=== PATIENT | female | born 1980 | race Caucasian/White ===

== ENCOUNTER 2016-12-31 02:37 | Inpatient (IN) | payer OTHER ==
--- NOTE | 2016-12-30 20:03 | History & Physical Pre-Op ---
General Information and HPI History of Present Illness: 36yo with chronic severe menorrhagia desires definitive surgicaltreatment. Menses every 3-4 weeks and lasitng 7 days. Previous c/s x 3 and BTL. Allergies/Medications Allergies: Coded Allergies: NO KNOWN ALLERGIES (12/24/16) Home Med list Hydrochlorothiazide 25 MG TABLET 1 TAB PO DAILY WATER PILL (Reported) Lisinopril (Prinivil) 5 MG TABLET 1 TAB PO DAILY HEART (Reported) Metformin HCl 500 MG TABLET 1 TAB PO BID DIABETES (Reported) Metoprolol Succinate 100 MG TAB.ER.24H 1 TAB PO DAILY HEART (Reported) Pantoprazole Sodium (Protonix) 40 MG TABLET.DR 1 TAB PO DAILY GI (Reported) Past History Medical History Cardiovascular: hypertension Gastrointestinal: GERD Endocrine: diabetes Surgical History Pertinent Surgical History: , tubal ligation Review of Systems Review of Systems Constitutional: Reports: no symptoms. EENTM: Reports: no symptoms. Cardiovascular: Reports: no symptoms. Respiratory: Reports: no symptoms. GI: Reports: no symptoms. Genitourinary: Reports: see HPI. Musculoskeletal: Reports: no symptoms. Skin: Reports: no symptoms. Neurological/Psychological: Reports: no symptoms. Hematologic/Endocrine: Reports: no symptoms. Immunologic/Allergic: Reports: no symptoms. All Other Systems: Reviewed and Negative Exam & Diagnostic Data Last 24 Hrs of Vital Signs/I&O vss Physical Exam: HEENT: NCAT Chest: CTA CV: nl S1S2 Pelvic: deferred Ext: no C/C/E Neuro: nonfocal Assessment/Plan Assessment/Plan: menorrhagia GABRIELLE;BS stents As Ranked By This Provider Problem List: 1. Menorrhagia
[~2016-12-31] VITALS: Ht 167.6 cm; Wt 90.9 kg
[~2016-12-31 02:37] MED LIST: HYDROCHLOROTHIA25 M1 PO; METFORMIN HCL500 M3 PO; METOPROLOL SUC100 M2 PO; PRINIVIL5 M1 PO; PROTONIX40 M3 PO
--- NOTE | 2016-12-31 08:22 | Operative Report ---
Operative/Inv Procedure Report Surgery Date: 12/31/16 Name of Procedure: Cystoscopy and insertion of bilateral ureteral stents Pre-Operative Diagnosis: Patient undergoing hysterectomy Post-Operative Diagnosis: Same Estimated Blood Loss: scant Surgeon/Journeyman Pressman: Nito JOINER, Malik MARTIN MD,LESLY Anesthesia: general endotracheal tube Specimens: Urine for culture Complications: None Condition: Stable Operative Indication: Need for hysterectomy Operative/Procedure Note Note: The patient was taken to the operating room and identified. She was placed in supine position on the operating table. Timeout was executed appropriately the patient awake. Gen. anesthesia was induced via an endotracheal tube. She was placed in the dorsal lithotomy position and prepped and draped in usual fashion for cystoscopy. A 22 Somali cystoscope sheath was placed in the bladder and cystoscopy performed. Other than some mild trigonitis the bladder was normal. The right and left ureteral orifices were normal in location and appearance. Open-ended catheter was placed through the cystoscope and into the left ureter appears advanced up the level of the left kidney. Through the second port on the cystoscope bridge another open-ended catheter was advanced through the scope and into the right ureter and advanced up the level of the kidney. The cystoscope was removed leaving both ureteral catheters in place. A Castro catheter was then placed. The ureteral stents were fixed the Castro catheter with cloth tape. Each stent was placed through separate drainage bag. The patient tolerated this portion of the procedure well and was to undergo hysterectomy was dictated separately. Findings: Normal bladder other than mild trigonitis
[2016-12-31 19:04] LABS: ABSOLUTE BASOPHIL COUNT 0 /CUMM (0.0-0.2); ABSOLUTE EOSINOPHIL COUNT 0 /CUMM (0.0-0.7); ABSOLUTE GRANULOCYTE CT 8.2 /CUMM (1.4-6.5); ABSOLUTE LYMPH COUNT 1.2 /CUMM (1.2-3.4); ABSOLUTE MONOCYTE COUNT 0.5 /CUMM (0.10-0.60); BASOPHIL % 0.1 % (0.0-2.0); EOSINOPHIL % 0 % (0-5); HEMATOCRIT 21.5 % (37-47); MEAN CORPUSCULAR HGB 21.3 PG (27.0-31.0); MEAN CORPUSCULAR HGB CONC 31.4 G/DL (33.0-37.0); MEAN CORPUSCULAR VOLUME 67.9 FL (81.0-99.0); MEAN PLATELET VOLUME 9.1 FL (7.4-10.4); PLATELET COUNT 266 /CUMM (130-400); RBC DISTRIBUTION WIDTH 18.2 % (11.5-14.5); RED BLOOD CELL CT 3.17 /CUMM (4.20-5.40); WHITE BLOOD CELL COUNT 9.9 /CUMM (4.8-10.8)
[2016-12-31 19:07] LABS: GRANULOCYTE % 82.8 % (42.2-75.2)
[2016-12-31 23:50] LABS: ABSOLUTE BASOPHIL COUNT 0 /CUMM (0.0-0.2); ABSOLUTE EOSINOPHIL COUNT 0 /CUMM (0.0-0.7); ABSOLUTE GRANULOCYTE CT 6.4 /CUMM (1.4-6.5); ABSOLUTE LYMPH COUNT 1.7 /CUMM (1.2-3.4); ABSOLUTE MONOCYTE COUNT 0.5 /CUMM (0.10-0.60); BASOPHIL % 0.5 % (0.0-2.0); EOSINOPHIL % 0.3 % (0-5); GRANULOCYTE % 73.5 % (42.2-75.2); HEMATOCRIT 20.6 % (37-47); MEAN CORPUSCULAR HGB 21.1 PG (27.0-31.0); MEAN CORPUSCULAR HGB CONC 31.2 G/DL (33.0-37.0); MEAN CORPUSCULAR VOLUME 67.5 FL (81.0-99.0); MEAN PLATELET VOLUME 8.1 FL (7.4-10.4); PLATELET COUNT 263 /CUMM (130-400); RBC DISTRIBUTION WIDTH 17.9 % (11.5-14.5); RED BLOOD CELL CT 3.05 /CUMM (4.20-5.40); WHITE BLOOD CELL COUNT 8.6 /CUMM (4.8-10.8)
[2017-01-01 09:06] LABS: ABSOLUTE BASOPHIL COUNT 0.1 /CUMM (0.0-0.2); ABSOLUTE EOSINOPHIL COUNT 0.1 /CUMM (0.0-0.7); ABSOLUTE GRANULOCYTE CT 3.9 /CUMM (1.4-6.5); ABSOLUTE MONOCYTE COUNT 0.5 /CUMM (0.10-0.60); EOSINOPHIL % 1.5 % (0-5); MEAN CORPUSCULAR HGB 22.3 PG (27.0-31.0); MEAN CORPUSCULAR HGB CONC 31.6 G/DL (33.0-37.0); MEAN CORPUSCULAR VOLUME 70.4 FL (81.0-99.0); MEAN PLATELET VOLUME 8.7 FL (7.4-10.4); PLATELET COUNT 233 /CUMM (130-400); RBC DISTRIBUTION WIDTH 19.6 % (11.5-14.5); RED BLOOD CELL CT 3.15 /CUMM (4.20-5.40); WHITE BLOOD CELL COUNT 6.6 /CUMM (4.8-10.8)
[2017-01-01 09:12] LABS: HEMATOCRIT 22.2 % (37-47)
--- NOTE | 2017-01-01 12:15 | RADIOLOGY REPORT ---
EXAMINATION: XR PORTABLE CHEST CLINICAL INFORMATION: Postoperative fever. COMPARISON: None TECHNIQUE: Portable portable AP semierect view of the chest was obtained. FINDINGS: Lung volumes are relatively low. There is mild patchy opacity at the right base consistent with mild atelectasis. Developing pneumonia is possible. The pleural spaces are clear. The heart and mediastinal structures are normal. IMPRESSION: Mild patchy opacity right base consistent with mild atelectasis versus developing pneumonia.
[2017-01-01 19:33] LABS: ABSOLUTE BASOPHIL COUNT 0.1 /CUMM (0.0-0.2); ABSOLUTE EOSINOPHIL COUNT 0.1 /CUMM (0.0-0.7); ABSOLUTE GRANULOCYTE CT 6.5 /CUMM (1.4-6.5); ABSOLUTE LYMPH COUNT 1.4 /CUMM (1.2-3.4); ABSOLUTE MONOCYTE COUNT 0.4 /CUMM (0.10-0.60); BASOPHIL % 0.6 % (0.0-2.0); GRANULOCYTE % 77.2 % (42.2-75.2); HEMATOCRIT 25.6 % (37-47); MEAN CORPUSCULAR HGB 22.9 PG (27.0-31.0); MEAN CORPUSCULAR HGB CONC 31.8 G/DL (33.0-37.0); MEAN CORPUSCULAR VOLUME 72.2 FL (81.0-99.0); MEAN PLATELET VOLUME 8.8 FL (7.4-10.4); PLATELET COUNT 245 /CUMM (130-400); RBC DISTRIBUTION WIDTH 20.2 % (11.5-14.5); RED BLOOD CELL CT 3.55 /CUMM (4.20-5.40); WHITE BLOOD CELL COUNT 8.5 /CUMM (4.8-10.8)
[2017-01-02 08:26] LABS: ABSOLUTE BASOPHIL COUNT 0 /CUMM (0.0-0.2); ABSOLUTE EOSINOPHIL COUNT 0.1 /CUMM (0.0-0.7); ABSOLUTE GRANULOCYTE CT 8.1 /CUMM (1.4-6.5); ABSOLUTE MONOCYTE COUNT 0.4 /CUMM (0.10-0.60); BASOPHIL % 0.4 % (0.0-2.0); EOSINOPHIL % 1.4 % (0-5); HEMATOCRIT 23.9 % (37-47); MEAN CORPUSCULAR HGB CONC 31.9 G/DL (33.0-37.0); MEAN PLATELET VOLUME 8.8 FL (7.4-10.4); PLATELET COUNT 241 /CUMM (130-400); RBC DISTRIBUTION WIDTH 20.3 % (11.5-14.5); RED BLOOD CELL CT 3.32 /CUMM (4.20-5.40); WHITE BLOOD CELL COUNT 9.7 /CUMM (4.8-10.8)
[2017-01-02 09:38] LABS: GRANULOCYTE % 83.5 % (42.2-75.2)
--- NOTE | 2017-01-03 11:19 | PN- General Surgery ---
Subjective Subjective: denies n/v low grade fever elyse toast Review of Systems: no n/v; pos flatus Objective Vital Signs and I&Os Vital Signs Date Time Temp Pulse Resp B/P Pulse O2 O2 Flow FiO2 Ox Delivery Rate 01/03 0950 100/60 01/03 0950 100/60 Physical Exam: incision c/d/i chest cta ext nt Assessment/Plan Assessment/Plan s/p dean pod 3 post op fever on Unasyn and Gent cultures neg if afebrioe x 24 hr will discharge in am Problem List: 1. Status post hysterectomy Core Measures/Miscellaneous Venous Thromboembolism VTE Risk Factors: Surgery VTE Contraindications: No Contraindications VTE Prophylaxis Ordered Inpt Mech/Pharm Contraindicate VTE Diagnosis: No Beta Jasmina Is Beta Jasmina a Home Med? No Antibiotics Is Patient on Antibiotics? Yes
[2017-01-04 09:42] VITALS: BP 120/76
[2017-01-04 11:50] LABS: ABSOLUTE BASOPHIL COUNT 0 /CUMM (0.0-0.2); ABSOLUTE EOSINOPHIL COUNT 0.2 /CUMM (0.0-0.7); ABSOLUTE GRANULOCYTE CT 3.6 /CUMM (1.4-6.5); ABSOLUTE MONOCYTE COUNT 0.4 /CUMM (0.10-0.60); BASOPHIL % 0.7 % (0.0-2.0); EOSINOPHIL % 4.7 % (0-5); GRANULOCYTE % 68.7 % (42.2-75.2); HEMATOCRIT 23.2 % (37-47); MEAN CORPUSCULAR HGB 23.4 PG (27.0-31.0); MEAN CORPUSCULAR HGB CONC 32.3 G/DL (33.0-37.0); MEAN CORPUSCULAR VOLUME 72.5 FL (81.0-99.0); MEAN PLATELET VOLUME 8.5 FL (7.4-10.4); PLATELET COUNT 259 /CUMM (130-400); RBC DISTRIBUTION WIDTH 21.1 % (11.5-14.5); WHITE BLOOD CELL COUNT 5.3 /CUMM (4.8-10.8)
--- NOTE | 2017-01-04 14:47 | CT SCAN REPORT ---
EXAMINATION: CT ABDOMEN AND PELVIS WITH CONTRAST CLINICAL INFORMATION: POSTOP FEVER COMPARISON: None. TECHNIQUE: Multidetector volumetric imaging was performed from the superior aspect of the liver through the pubic symphysis following administration of 95 ml of Optiray 320 Sagittal and coronal reformatted images were obtained on the technologist workstation. DLP: 807 mGy-cm FINDINGS: LUNG BASES: Tiny right greater than left pleural effusions are seen with basilar airspace disease suggesting atelectasis again right more so than left. FLUID: Trace amount of perihepatic, perisplenic, and pelvic ascites is noted, likely within normal limits for the recent postoperative state. LIVER, GALLBLADDER, AND BILIARY TREE: The liver is normal in size, shape, and attenuation. No focal hepatic lesion or biliary ductal dilatation is present. Gallbladder is distended with a small amount of nonspecific pericholecystic fluid no radiopaque gallstones seen. No definitive gallbladder wall thickening. PANCREAS: Unremarkable. SPLEEN: Unremarkable. ADRENAL GLANDS: Unremarkable. KIDNEYS AND URETERS: The kidneys are normal in size, shape, and attenuation. No hydronephrosis, hydroureter, or calculi seen. No perinephric stranding. BLADDER: Decompressed but otherwise unremarkable GASTROINTESTINAL TRACT: The small and large bowel are unremarkable. The appendix is unremarkable. ABDOMINAL WALL: Postoperative changes in the recent postoperative air is seen in the anterior abdominal wall. LYMPHOVASCULAR STRUCTURES: No lymphadenopathy. The aorta is unremarkable. PELVIC VISCERA: Uterus is not visualized and presumably surgically absent. Difficult to separate the adnexa from the pelvic fluid but no bulky adnexal mass lesion seen. The bilateral gonadal veins appear to be within normal limits for this study. OSSEOUS STRUCTURES: Unremarkable. IMPRESSION: Postoperative changes as described above. Effusions, atelectasis, and ascites are likely related to the recent postoperative changes. I do not appreciate any discrete drainable collection. The distended gallbladder is likely secondary to patient not recently eating.
[2017-01-05] MEDS ORDERED: AMOX-CLAV 875-1 EACH PO (08:46)
[2017-01-05] MEDS ORDERED: FLAGYL250 M1 PO (08:46)
[2017-01-05] MEDS ORDERED: PERCOCET 5-3251 EACH PO (08:51)
[2017-01-05] MEDS ORDERED: IBUPROFEN800 M1 PO (08:54)
[2017-01-05] MEDS ORDERED: ONDANSETRON ODT4 M1 PO (08:56)
--- NOTE | 2017-01-05 09:31 | Operative Report ---
Operative/Inv Procedure Report Surgery Date: 12/31/16 Name of Procedure: Supracervical abdominal hysterectomy Pre-Operative Diagnosis: Menorrhagia Post-Operative Diagnosis: Same Estimated Blood Loss: 200 mL Surgeon/Front Desk Worker: GEOVANNY MG MD,LESLY Reis M.D. Anesthesia: general endotracheal tube Operative/Procedure Note Note: The patient was brought to the operating room placed on the OR table in the dorsal supine position. She was given adequate general anesthesia and successfully intubated. Venodyne boots were placed and activated. Ureteral stents were placed by Dr. Nikole De La Rosa and are dictated by him. The abdomen was prepped and draped in usual sterile fashion. A Pfannenstiel skin incision was made with the scalpel and this was taken down to layer of the fascia. The fascia was nicked in the midline and extended bilaterally. The underlying rectus muscles were off the fascia. The peritoneal cavity was entered bluntly. She was noted to be approximately 12-14 weeks' size. An O'Danny-O' Romero retractor was placed into the abdomen and the intestines were packed away with moistened laparotomy pads. A double-tooth tenaculum was attached to the fundus of the uterus and this was elevated throughout the case. The right round ligament was transected and suture ligated with 0 Polysorb and tagged. Same procedures. On the left. The bladder flap was then taken down bilaterally sharply. It was adherent in the midline. The right utero-ovarian ligament was clamped using the symptoms transected and suture ligated with 0 Polysorb. Hemostasis was good. Essentially the same procedure is repeated on the left with good hemostasis. The right uterine artery was clamped with a Rustam clamp transected and suture ligated with 0 Polysorb with good effect. Same procedures. On the left good hemostasis. The bladder flap was then noted to be scarred in the midline incision therefore this was taken down carefully using the scalpel and the Metzenbaum scissors. The cardinal ligaments were then sequentially [place] clamped transected and suture ligated. To the point where the bladder was. At this point the corpus of the uterus was transected with good hemostasis. A large portion of the cervical stump was then excised in a similar fashion. The remaining stump was oversewn using 0 Polysorb to good effect. The pelvis was then copiously irrigated and noted to be hemostatic. The laparotomy pads removed as well as the retractors. Rectus muscles were reapproximated using 2-0 Polysorb in an interrupted fashion. Fascia was closed using 0 Polysorb in a running nonlocking fashion. Subcutaneous tissues were irrigated were needed and coagulated. The skin was closed using rose and a dry sterile dressing was applied to the wound. The stents were removed patient was awakened and sent to recovery in good condition. All needle, sponge, and instrument counts were correct at the end of the procedure 2.
--- NOTE | 2017-01-05 09:36 | Surgical Discharge Summary ---
Visit Information Visit Dates Admission Date: 12/31/16 Discharge Date: 01/05/17 History of Present Illness Chief Complaint: Menorrhagia Medical History Cardiovascular: hypertension Gastrointestinal: GERD Endocrine: diabetes Isolation History: Standard Surgical History Pertinent Surgical History: , tubal ligation Psychosocial History What is Your Primary Language? German Review of Systems: Negative Hospital Course Course Attending Physician: LESLY MARTIN MD Primary Care Physician: KJ DASILVA Hospital Course: The patient was admitted and underwent hysterectomy without complication. She was sent to recovery in good condition. Postoperative day #1 patient patient was complaining of headache and nausea. She was noted to have a drop in her hemoglobin and hematocrit all of her vital signs are stable. She was transfused 1 unit of packed red blood cells. Her diet was advanced and her activity was increased however she was dizzy and fatigued and therefore remained supine most of the day. A #2 the patient was feeling better and her diet was advanced and she was up to a chair. Later in the day she felt nauseous again and began to vomit. She was then made nothing by mouth. She was also spiking low-grade fevers. Blood cultures were taken and a chest x-ray and urine culture was as taken as well. Richardson to spike low-grade fevers and was started on Unasyn. On postoperative day #3 the patient felt better and was starting to tolerate a regular diet. She was ambulating as well. She continued to have low-grade fevers and therefore her antibiotics were expanded to include Unasyn and gentamicin. Operative day #4 the patient was feeling better however she continued to spike low-grade fevers and was sent for an abdominal pelvic CAT scan which returned normal. On postoperative day #5 her temperature is 90.9 and the patient desired discharge home. She was discharged home to follow up 3 days later. Allergies: Coded Allergies: NO KNOWN ALLERGIES (12/24/16) Disposition Summary Disposition Principal Diagnosis: Menorrhagia Additional Diagnosis: Status post hysterectomy Discharge Disposition: home or self care Discharge Instructions General Discharge Information Code Status: Full Code Patient's Diet: Regular Patient's Activity: Pelvic rest with weight restrictions Follow-Up Instructions/Appts: 3 days incision check Medications at Discharge Discharge Medications: Continue taking these medications: Metformin HCl (Metformin HCl) 500 MG TABLET 1 Tablet ORAL TWICE DAILY Lisinopril (Prinivil) 5 MG TABLET 1 Tablet ORAL DAILY Metoprolol Succinate (Metoprolol Succinate) 100 MG TAB.ER.24H 1 Tablet ORAL DAILY Pantoprazole Sodium (Protonix) 40 MG TABLET.DR 1 Tablet ORAL DAILY Hydrochlorothiazide (Hydrochlorothiazide) 25 MG TABLET 1 Tablet ORAL DAILY Start taking the following new medications: Amoxicillin/Clavulanate Potass (Amox-Clav 875-125 MG Tablet) 875 MG-125 MG TABLET 875 Milligram ORAL EVERY 12 HOURS Qty = 20 No Refills Metronidazole (Flagyl) 250 MG TABLET 500 Milligram ORAL TWICE DAILY Qty = 14 No Refills Oxycodone HCl/Acetaminophen (Percocet 5-325 MG Tablet) 5 MG-325 MG TABLET 1 Tablet ORAL EVERY 4 HOURS NEEDED as needed for PAIN SCALE 4-6 (MODERATE ) Qty = 24 No Refills Ibuprofen (Ibuprofen) 800 MG TABLET 800 Milligram ORAL EVERY SIX HOURS NEEDED as needed for PAIN SCALE 4-6 ( MODERATE) Qty = 36 No Refills Ondansetron (Ondansetron Odt) 4 MG TAB.RAPDIS 4 Milligram ORAL EVERY 6 HOURS NEEDED as needed for NAUSEA/VOMITING Qty = 12 No Refills
== END 2017-01-05 09:12 | DRG 513 ==
LOC: ENRESERVDT → ENRESERVTM → SDA 02:37 → GNO 12:50
PROVIDERS: ADMIT Obstetrics & Gynecology
PROC: 0UT90ZZ Resection of Uterus, Open Approach (ICD-10-PCS; principal; 2016-12-31)
PROC: 0T788DZ Dilation of Bilateral Ureters with Intraluminal Device, Via Natural or Artificial Opening Endoscopic (ICD-10-PCS; 2016-12-31)
PROC: 30233N1 Transfusion of Nonautologous Red Blood Cells into Peripheral Vein, Percutaneous Approach (ICD-10-PCS; 2017-01-01)
DX: N92.0 Excessive and frequent menstruation with regular cycle (principal); I10 Essential (primary) hypertension; K21.9 Gastro-esophageal reflux disease without esophagitis; E11.9 Type 2 diabetes mellitus without complications; Z79.84 Long term (current) use of oral hypoglycemic drugs
CPT/HCPCS: 36415; 74177; 82570; 86920; 87040; 87086; 87804; 87804-59; 88307; J0131; J0694; J1170; J1200; J1580; J1650; J1885; J2405; J3101; J7508; P9016